=== PATIENT | female | born 1960 | race Caucasian/White ===

== ENCOUNTER 2025-02-04 08:26 | Outpatient (CLI) | payer MEDICARE, BC ==
--- NOTE | 2025-02-04 10:37 | RADIOLOGY REPORT ---
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 Ga llium contrast material is given. FINDINGS: There is postsurgical change from prior left frontal craniotomy. 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 The brain otherwise shows normal morphology and signal characteristics. No abnormal T2 hyperintensity, diffusion restriction, or susceptibility hypointensity is present. The ve ntricles are normal in size. The midline structures are intact. The major intracranial flow voids are present. The aerated spaces are normal. The orbital contents and extracranial soft tissues appear no rmal. IMPRESSION: No enhancing intracranial lesions visualized. Postsurgical change from prior left frontal craniotomy. An old infarct is noted in the left basal jolynn glia.
[2025-02-04] MEDS ORDERED: GADOTERATE MEGLUMINE 7.5 MMOL/15 ML VIAL IV ONE (18:00)
== END 2025-02-04 23:59 | disposition home or self-care (01) ==
LOC: MRI 08:26
PROVIDERS: ATTEND Internal Medicine
DX: C83.390 Primary central nervous system lymphoma (principal)
CPT/HCPCS: 70553; A9575